=== PATIENT | male | born 1955 | race Caucasian/White ===

== ENCOUNTER 2018-10-02 16:10 | Emergency (ER) | payer MEDICARE, BC ==
[~2018-10-02] VITALS: Ht 177.8 cm; Wt 74.8 kg
--- NOTE | 2018-10-02 16:15 | NUR ---
PATIENT WAS SEEN BY MD. HE IS A/A/O X3 IN NO DISTRESS.
--- NOTE | 2018-10-02 17:37 | NUR ---
DC, RX (INCLUDING PERCOCET PRECAUTIONS) GIVEN AND EXPLAINED TO PATIENT WHO STATES HE UNDERSTANDS ALL INSTRUCTIONS.
== END 2018-10-02 17:39 | disposition home or self-care (01) ==
LOC: ER 16:14
DX: S16.1XXA Strain of muscle, fascia and tendon at neck level, initial encounter (principal); Z88.0 Allergy status to penicillin; Z88.1 Allergy status to other antibiotic agents; V43.52XA Car driver injured in collision with other type car in traffic accident, initial encounter; Y93.89 Activity, other specified; Y92.89 Other specified places as the place of occurrence of the external cause; Y99.8 Other external cause status
CPT/HCPCS: A4663